=== PATIENT | female | born 1970 | race Caucasian/White ===

== ENCOUNTER 2023-06-17 20:05 | Emergency (ER) | payer MEDICAID, SELFPAY ==
[2023-06-17] VITALS (13 sets, daily range): BP systolic 68–113; BP diastolic 31–98; PULSE 77–91; RESP 14–18; TEMP 36.2; O2SAT 92–100; BMI 35.7
--- NOTE | 2023-06-17 20:13 | EKG12_ITS ---
Test Reason : SOB Blood Pressure : / mmHG Vent. Rate : 082 BPM Atrial Rate : 082 BPM P-R Int : 154 ms QRS Dur : 080 ms QT Int : 384 ms P-R-T Axes : 067 058 084 degrees QTc Int : 448 ms Normal sinus rhythm Normal ECG Confirmed by Sanjay Gibbs ([id number]), makeup editor STAR SEGAL ([id number]) on 06/19/2023 10:54:00 AM Referred By: Confirmed By:Sanjay Gibbs
--- NOTE | 2023-06-17 20:17 | EDS_ITS ---
HPI <CELESTE Pineda - Last Filed: 06/17/23 22:01> History of Present Illness Chief Complaint: Shortness of Breath Narrative Narrative: 52-year-old female with no known past medical history presents after a presyncopal episode. She was at home with her family watching a movie and ate pizza and smoked weed. A couple minutes later she started to feel hot and flushed and told her family she did not feel well. Her daughter states her face and lips looked pale and her eyes fluttered and rolled back and her words were slurred. They put a wet washcloth and ice pack on her head and neck and the patient improved and felt back to normal within 20 minutes. She had no associated headache, nausea or vomiting, chest pain or shortness of breath. She denies recent illness. She has not seen a doctor in about 10 years and takes no medications. She smokes 1 PPD. She states she smokes weed frequently. PFSH <CELESTE Pineda Last Filed: 06/17/23 22:01> [facility] Medical History no medical history Home Medications NK 06/17/23 [History Last Taken Unknown] Allergy/AdvReac Type Severity Reaction Status Date / Time No Known Allergies Allergy Verified 06/17/23 20:13 Family History no significant family his Surgical History no surgical history Social History Smoking Status: Current every day smoker tobacco type: cigarettes ROS <CELESTE Pineda - Last Filed: 06/17/23 22:01> ROS ED ROS Narrative Constitutional: Negative for fever, chills, malaise. CVS: Negative for palpitations, chest pain. Respiratory: Negative for shortness of breath. GI: Negative for abdominal pain, nausea, vomiting, melena, hematochezia. : Negative for dysuria. Neuro: Negative for headache. EXAM <CELESTE Pineda Last Filed: 06/17/23 22:01> Physical Exam Narrative Exam Narrative: CONST: Patient sitting in no acute distress. EYES: Normal inspection. PERRL, EOMI. ENT: Normal inspection, moist mucous membranes. NECK: Normal inspection. RESP: No respiratory distress, CTAB. CVS: Regular rate and rhythm, no murmur, no gallop. ABD: Soft and nontender, no guarding or rebound, nondistended. SKIN: Color normal, no rash, warm, dry, intact. EXTREMITIES: Normal appearance, no pedal edema. NEURO: Alert and answering questions appropriately. PSYCH: Normal affect. Const Vital Signs: 06/17/23 20:06 06/17/23 20:10 06/17/23 20:32 Temperature 97.1 F L Temperature Source Oral Pulse Rate 91 Respiratory Rate Respiratory Effort Normal Respiratory Depth Normal Respiratory Pattern Normal Blood Pressure 79/49 L 92/58 L Blood Pressure Mean 59 69 Pulse Ox 100 Oxygen Delivery Method Room Air Room Air 06/17/23 22:22 06/17/23 20:40 06/17/23 20:45 Temperature Temperature Source Pulse Rate 82 77 Respiratory Rate 14 18 Respiratory Effort Respiratory Depth Respiratory Pattern Blood Pressure 113/98 H 68/61 L Blood Pressure Mean 103 65 Pulse Ox 96 96 Oxygen Delivery Method 06/17/23 21:00 06/17/23 21:03 06/17/23 21:15 Temperature Temperature Source Pulse Rate Respiratory Rate Respiratory Effort Respiratory Depth Respiratory Pattern Blood Pressure 76/31 L 90/64 Blood Pressure Mean 46 73 Pulse Ox 93 95 94 Oxygen Delivery Method 06/17/23 21:30 06/17/23 21:45 06/17/23 22:00 Temperature Temperature Source Pulse Rate Respiratory Rate Respiratory Effort Respiratory Depth Respiratory Pattern Blood Pressure 100/65 97/61 102/61 Blood Pressure Mean 76 72 75 Pulse Ox 92 94 Oxygen Delivery Method 06/17/23 22:01 Temperature Temperature Source Pulse Rate Respiratory Rate Respiratory Effort Respiratory Depth Respiratory Pattern Blood Pressure Blood Pressure Mean Pulse Ox 96 Oxygen Delivery Method <Dr. Jim Rich, DO - Last Filed: 06/17/23 22:25> Physical Exam Const Vital Signs: 06/17/23 20:06 06/17/23 20:10 06/17/23 20:32 Temperature 97.1 F L Temperature Source Oral Pulse Rate 91 Respiratory Rate Respiratory Effort Normal Respiratory Depth Normal Respiratory Pattern Normal Blood Pressure 79/49 L 92/58 L Blood Pressure Mean 59 69 Pulse Ox 100 Oxygen Delivery Method Room Air Room Air 06/17/23 22:22 06/17/23 20:40 06/17/23 20:45 Temperature Temperature Source Pulse Rate 82 77 Respiratory Rate 14 18 Respiratory Effort Respiratory Depth Respiratory Pattern Blood Pressure 113/98 H 68/61 L Blood Pressure Mean 103 65 Pulse Ox 96 96 Oxygen Delivery Method 06/17/23 21:00 06/17/23 21:03 06/17/23 21:15 Temperature Temperature Source Pulse Rate Respiratory Rate Respiratory Effort Respiratory Depth Respiratory Pattern Blood Pressure 76/31 L 90/64 Blood Pressure Mean 46 73 Pulse Ox 93 95 94 Oxygen Delivery Method 06/17/23 21:30 06/17/23 21:45 06/17/23 22:00 Temperature Temperature Source Pulse Rate Respiratory Rate Respiratory Effort Respiratory Depth Respiratory Pattern Blood Pressure 100/65 97/61 102/61 Blood Pressure Mean 76 72 75 Pulse Ox 92 94 Oxygen Delivery Method 06/17/23 22:01 Temperature Temperature Source Pulse Rate Respiratory Rate Respiratory Effort Respiratory Depth Respiratory Pattern Blood Pressure Blood Pressure Mean Pulse Ox 96 Oxygen Delivery Method MDM <CELESTE Pineda - Last Filed: 06/17/23 22:01> [facility] Narrative Medical decision making narrative: History gathered from: Patient and family Differential: Syncope from orthostatic hypotension from marijuana use, electrolyte abnormality, cardiac etiology among others Patient had a prodrome of feeling hot, flushed, pale, and then had a brief syncopal episode. She was sitting and did not fall or have any injuries. She quickly returned to baseline. She appears well and nontoxic. BP is 79/49, recheck 92/58. The rest of her vital signs are stable. She was standing when I entered the room and feels asymptomatic and her exam is unremarkable. CBC shows normal white count of 7.4 and mild hemoconcentration at 16.4. She has normal electrolytes, BUN 27, creatinine 1.21. Glucose is 147 with normal CO2 and anion gap. EKG is sinus rhythm with no ischemia and troponin is 3. Nursing staff had difficulty placing a peripheral IV so she initially was not given IV fluids but is drinking water. Blood pressure is 100/60s. Plan will be for 1 L of IV fluids and repeat vital signs and if patient remains asymptomatic I feel she can be discharged home. Lab Data Attestation: I reviewed the patient's lab results. Labs: Laboratory Results - last 24 hr 06/17/23 20:30 WBC 7.4 RBC 5.27 Hgb 16.4 H Hct 48.3 H MCV 91.7 MCH 31.1 MCHC 34.0 RDW Std Deviation 43.1 RDW Coeff of Shira 12.7 Plt Count 288 MPV 10.4 Immature Gran % (Auto) 0.100 Neut % (Auto) 61.0 Lymph % (Auto) 27.9 [place] % (Auto) 7.3 Eos % (Auto) 3.4 Baso % (Auto) 0.3 Absolute Neuts (auto) 4.5 Absolute Lymphs (auto) 2.06 Nucleated RBC % 0 Sodium 139 Potassium 4.2 Chloride 107 Carbon Dioxide 27.0 Anion Gap 5 BUN 27 H Creatinine 1.21 H Estim Creat Clear Calc 66.53 Est GFR (MDRD) Af Amer 60 Est GFR (MDRD) Non-Af 49 L BUN/Creatinine Ratio 22.3 H Glucose 147 H Calcium 9.1 Troponin I High Sens 3 Radiography Diagnostic Testing: Clinical Impression(s) from Imaging Studies Chest X-Ray 06/17/23 20:30 IMPRESSION: No radiographic evidence of acute cardiopulmonary disease. Electronically Signed: Homar Fernandez MD at 21:07 EDT Reading Location ID and State: [facility] / [place] , Service support , ED attending interpretation of 1-view chest x-ray shows normal heart size, no acute infiltrate, edema, or effusion. EKG Initial EKG: Attestation: I personally reviewed and interpreted this EKG as follows: Interpretation: Sinus Rhythm and No Acute Injury Pattern Comments: Normal sinus rhythm 82 bpm Normal intervals, no ischemic changes <Dr. Jim Rich, DO - Last Filed: 06/17/23 22:25> [facility] MDM Narrative Medical decision making narrative: History gathered from: Patient and family Differential: Syncope from orthostatic hypotension from marijuana use, electrolyte abnormality, cardiac etiology among others Patient had a prodrome of feeling hot, flushed, pale, and then had a brief syncopal episode. She was sitting and did not fall or have any injuries. She quickly returned to baseline. She appears well and nontoxic. BP is 79/49, recheck 92/58. The rest of her vital signs are stable. She was standing when I entered the room and feels asymptomatic and her exam is unremarkable. CBC shows normal white count of 7.4 and mild hemoconcentration at 16.4. She has normal electrolytes, BUN 27, creatinine 1.21. Glucose is 147 with normal CO2 and anion gap. EKG is sinus rhythm with no ischemia and troponin is 3. Nursing staff had difficulty placing a peripheral IV so she initially was not given IV fluids but is drinking water. Blood pressure is 100/60s. Plan will be for 1 L of IV fluids and repeat vital signs and if patient remains asymptomatic I feel she can be discharged home. I have personally performed a face to face assessment of the patient and have reviewed the PRIYANK Note. I performed a substantive portion of the visit including all aspects of the following. My murdock findings include: History is patient ate dinner ingested some cannabis and got very hot. Family states that she appeared pale and possibly had a brief syncopal episode. She however quickly regained consciousness if she did not lose consciousness completely. She was noted to be hypotensive has had some persistent hypotension since. She currently however denies any pain. She states that she feels quite well. Exam is nonfocal exam. Heart regular without murmur lung sounds clear and equal normal skin color. Excellent capillary refill less than 2 seconds of the fingers Medical Decison Making nursing was unable to obtain a IV. But while attempting to start IV the patient's blood pressure continued to improve and she was able to orally hydrate. EKG is a sinus rhythm. My independent interpretation of the chest x-ray is no acute process. Basic blood work was obtained essentially negative hemoglobin 16.4 creatinine 1.21 with a BUN of 27 initial troponin is 3. Patient is feeling back to baseline her blood pressure is up and she does not wish to stay for second troponin which I think is reasonable if she chooses to do so. I think this is high probability of being a vagal reaction. Lab Data Labs: Laboratory Results - last 24 hr 06/17/23 20:30 WBC 7.4 RBC 5.27 Hgb 16.4 H Hct 48.3 H MCV 91.7 MCH 31.1 MCHC 34.0 RDW Std Deviation 43.1 RDW Coeff of Shira 12.7 Plt Count 288 MPV 10.4 Immature Gran % (Auto) 0.100 Neut % (Auto) 61.0 Lymph % (Auto) 27.9 [place] % (Auto) 7.3 Eos % (Auto) 3.4 Baso % (Auto) 0.3 Absolute Neuts (auto) 4.5 Absolute Lymphs (auto) 2.06 Nucleated RBC % 0 Sodium 139 Potassium 4.2 Chloride 107 Carbon Dioxide 27.0 Anion Gap 5 BUN 27 H Creatinine 1.21 H Estim Creat Clear Calc 66.53 Est GFR (MDRD) Af Amer 60 Est GFR (MDRD) Non-Af 49 L BUN/Creatinine Ratio 22.3 H Glucose 147 H Calcium 9.1 Troponin I High Sens 3 Radiography Diagnostic Testing: Clinical Impression(s) from Imaging Studies Chest X-Ray 06/17/23 20:30 IMPRESSION: No radiographic evidence of acute cardiopulmonary disease. Electronically Signed: Homar Fernandez MD at 21:07 EDT Reading Location ID and State: [facility] / [place] , Service support , Discharge Plan Triage Chief Complaint: Shortness of Breath ED Midlevel Provider: Shayy Issa ED Provider: Jim Rich Dx/Rx/DC Orders Clinical Impression: Acute hypotension, Near syncope Instructions: Causes of Syncope Prescriptions: No Action NK Primary Care Provider: Polo Molina Referrals: Polo Molina MD [Primary Care Provider] - Vani Flores MD [Med Staff - [facility] Department Worker] - Activity Restrictions/Additional Instructions: Please follow up with PCP Disposition Disposition: Home, Self Care
--- NOTE | 2023-06-17 20:30 | RAD_ITS ---
EXAM: XR CHEST, 1 VIEW CLINICAL INDICATION: syncope TECHNIQUE: Frontal view of the chest. COMPARISON: No relevant prior studies available. FINDINGS: LUNGS AND PLEURAL SPACES: Unremarkable. No consolidation or edema. No pneumothorax. No effusion. HEART: Unremarkable. Cardiac silhouette not enlarged. MEDIASTINUM: Central airways and mediastinal contour are unremarkable. BONES/JOINTS: Unremarkable. No acute fracture. SOFT TISSUES: Unremarkable. RAD/Chest 1 View (Portable) IMPRESSION: No radiographic evidence of acute cardiopulmonary disease. Electronically Signed: Homar Fernandez MD at 21:07 EDT ,
[2023-06-17] MEDS: 0.9% Normal Saline (1000mL) 1,000 ML 999 ML IV (20:34)
[2023-06-17 20:50] LABS: Absolute Lymphocyte Count 2.06 X10^3/uL (0.83-4.51); Absolute Neutrophil Count 4.5 X10^3/uL (2.0-7.7); Basophil# 0.02 X10^3/uL; Basophil% 0.3 % (0-1); Eosinophil# 0.25 X10^3/uL; Eosinophils% 3.4 % (0-5); Hematocrit 48.3 % (37-47); Hemoglobin 16.4 g/dL (12.0-15.0); Lymphocyte # 2.06 X10^3/ul (0.83-4.51); Lymphocyte % 27.9 % (19-41); Mean Corpuscular Hgb 31.1 pg (27.0-32.0); Mean Corpuscular Volume 91.7 fL (81-99); Mean Platelet Vol. 10.4 fl (6.2-12.0); Monocyte# 0.54 X10^3/uL; Monocyte% 7.3 % (0-10); NRBC Flagged by Analyzer 0 % (0-5); Neutrophil # 4.51 X10^3/uL (2.7-7.7); Platelet Count 288 K/mm3 (150-450); RBC Distribution Width CV 12.7 % (11.6-14.6); RBC Distribution Width SD 43.1 fl (35.1-43.9); Red Blood Count 5.27 M/mm3 (4.2-5.4); White Blood Count 7.4 K/mm3 (4.4-11.0)
[2023-06-17 21:21] LABS: Anion Gap 5 (5-15); BUN 27 mg/dL (7-18); BUN/Creat Ratio 22.3 RATIO (10-20); Calcium,Total 9.1 mg/dL (8.5-10.1); Chloride 107 mmol/L (98-107); Creatinine, Serum 1.21 mg/dL (0.55-1.02); EST Glomerular Filtration Rate 49 mL/min (>60); Est Glom Filt Rate - Afr Amer 60 mL/min (>60); Estimated Creatinine Clearance 66.53 ml/min; Glucose 147 mg/dL (74-106); Potassium 4.2 mmol/L (3.5-5.1); Sodium Level 139 mmol/L (136-145); Troponin-I HS 3 pg/mL (3.0-54.0)
--- NOTE | 2023-06-17 22:07 | ED.RN ---
Multiple nurses attempted to get IV access and were unsuccessful. Patient does not want to be stuck anymore. Will encourage oral fluids and monitor BP.
== END 2023-06-17 22:28 | disposition home or self-care (01) ==
PROVIDERS: Physician Assistant; Emergency Provider Emergency Medicine; PCP Family Medicine; Visit Provider Emergency Medicine
DX: R06.02 Shortness of breath (principal); R55 Syncope and collapse; I95.9 Hypotension, unspecified; F17.210 Nicotine dependence, cigarettes, uncomplicated
CPT/HCPCS: 71045; 80048; 84484; 85025; 93005; 96360; 99282; J7030; A4216